=== PATIENT | female | born 1990 | race Caucasian/White ===

== ENCOUNTER 2021-05-18 13:21 | Emergency (ER) | payer MEDICAID, OTHER ==
[~2021-05-18] VITALS: Ht 149.9 cm; Wt 75.0 kg
[2021-05-18 13:38] VITALS: BP 124/79
== END 2021-05-18 14:21 | disposition home or self-care (01) ==
LOC: ED 13:49
DX: J06.9 Acute upper respiratory infection, unspecified (principal); Z20.822 Contact with and (suspected) exposure to COVID-19
CPT/HCPCS: 99283; U0003; U0005